=== PATIENT | female | born 1960 | race Caucasian/White ===

== ENCOUNTER 2025-07-23 14:32 | Outpatient (CLI) | payer MEDICARE, SELFPAY ==
--- OUTSIDE RECORDS SUMMARY | 2025-07-10 13:41 | XMS_ITS | Encounter Summary ---
Author Organization [facility] Address [address] [place] [address] Care Team Providers Care Tool Repairer Bench Name Role Phone Pranav Lagunas MD Primary Care Provider [phone] Reason for Referral * Diagnostic Imaging (Routine) - Closed Specialty Diagnoses / Procedures Referred By Contac t Referred To Contact Radiology Diagnoses Postmenopausal Procedures DEXA Bone Density Axial Pranav Lagunas MD [address] [place] [address] Phone: tel: fax: [address] [address] Phone: tel: Referral ID Status Reason Start Date Expiration Date Visits Re quested Visits Authorized [id number] Closed 02/21/2025 05/23/2026 1 1 Reason for Visit * Diagnostic Imaging (Routine) - Closed Specialty Diagnoses / Procedures Referred By Contac t Referred To Contact Radiology Diagnoses Postmenopausal Procedures DEXA Bone Density Axial Pranav Lagunas MD [address] [place] [address] Phone: tel: fax: [address] [address] Phone: tel: Referral ID Status Reason Start Date Expiration Date Visits Re quested Visits Authorized [id number] Closed 02/21/2025 05/23/2026 1 1 Encounter Details Date Type Department Care Team (Latest Contact Info) Description 07/10/2025 1:41 PM EDT - 07/10/2025 11:59 PM EDT Hospital Encounter [facility] [address] [place] [address] Pranav Lagunas MD [address] [place] [address] Postmenopausal Discharge Disposition: Home or Self Care Social History Tobacco Use Types Packs/Day Years Used Date Smoking Tobacco: Never Smokeless Tobacco: Never Alcohol Use Standard Drinks/Week Comments Yes 0 (1 standard drink = 0.6 oz pur e alcohol) rare PHQ-2 Answer Date Recorded Retired PHQ-9: Brief Depression Severity Measure Score 0 03/30/2023 PHQ-2 Answer Date Recorded Patient Health Questionnaire-2 Score 0 02/21/2025 Comments No Sex and Gender Information Value Date Recorded Sex Assigned at Female 02/14/2025 8:51 PM EDT Legal Sex Female 10:09 AM EDT Gender Identity Not on file Sexual Orientation Straight 02/14/2025 8: 51 PM EDT Occupation Industry Job Start Date Job End Date Not on file Not on file Not on file Not on file documented as of this encounter Medications at Time of Discharge azaTHIOprine (IMURAN) 50 MG tabletIndications: Ulcerative pancolitis without complication Take 2 tablets by mouth Daily. 60 tablet 5 03/12/2025 mesalamine (Lialda) 1.2 g EC tabletIndications: Ulcerative pancolitis without complication Take 2 tablets by mouth Daily. 60 tablet 5 09/13/2024 montelukast (Singulair) 10 MG tabletIndications: Chronic rhinitis Take 1 tablet by mouth Every Night. 90 tablet 3 02/21/2025 omeprazole (priLOSEC) 20 MG capsule TAKE 1 CAPSULE BY MOUTH EVERY DAY IN THE MORNING DIRECTED 08/18/2024 documented as of this encounter Plan of Treatment Upcoming Encounters Date Type Department Care Team (Late st Contact Info) Description 02/25/2026 10:00 AM EDT Office Visit [facility] [address] [address] Pranav Lagunas MD [address] [address] documented as of this encounter Procedures Procedure Name Priority Date/Time Associated Diagnosis Comments DEXA BONE DENSITY AXIAL Routine 07/10/2025 2:01 PM EDT Postmenopausal documented in this encounter Results * DEXA Bone Density Axial (07/10/2025 2:01 PM EDT) Anatomical Region Laterality Modality Wrist, Hip, L-spine N/A Other 07/10/2025 2:09 PM EDT Impressions 07/12/2025 10:18 PM EDT Osteopenia of the femoral necks bilaterally. The ten year fracture risk assessment is calculated at 11% for major systemic osteoporotic fracture and 1.7% for a hip fracture. Less than 3% risk in the [place] for hip fracture and less than 20% risk of any systemic osteoporotic fracture is considered less than the threshold for where pharmacological therapy is recommended by the National Osteoporosis Foundation. All the treatment decisions require clinical judgment and consideration of individual patient factors, including patient preferences, co-morbidities, previous drug use, risk factors not captured in the FRAX model (frailty, falls, vitamin D deficiency, increased bone turnover, interval significant decline in bone density) and possible under or over estimation of fracture risk by FRAX. Approaches to reduce osteoporosis related fracture risk include optimizing calcium and vitamin D status, appropriate weight bearing exercises and fall-prevention measurements. The National Osteoporosis Foundation recommends (http://www.nof.org/hcp/practice/cepqakku-ntx-ajekxhql-guidelines/clinicians-pablo de) that FDA-approved medical therapies be considered in postmenopausal women and men aged equal or greater than 50 years with : a) hip or vertebral (clinical or morphometric) fracture; b) T-score of -2.5 or less at the spine or hip; c) Ten-year fracture probability by FRAX of greater than 3% for hip fracture of greater than 20% for major osteoporotic fracture. Secondary causes of bone loss should be evaluated if clinically indicated since the etiology of low BMD cannot be determined by BMD measurement alone. FOLLOWUP: Consider repeating the study in 2-3 years to reassess the patient's status or sooner if there is some new clinical indication. INTERVAL CHANGE: There were no equivalent studies available for comparison. At this facility, the least significant change in the BMD at the left hip with 95% confidence is 0.714778 gm/cm2 at the hip and 0.486305 g/cm2 at the lumbar spine. Report dictated by: Elba Pompa PA-c I have personally reviewed this case and agree with the findings above: Electronically Signed: Gregory Wilson MD 07/12/2025 10:18 PM EDT Workstation ID: [id number] Narrative 07/12/2025 10:18 PM EDT DUAL-ENERGY X-RAY ABSORPTIOMETRY (DXA) INDICATION: Postmenopausal, screening for osteoporosis, inflammatory bowel disease COMPARISON: There are no equivalent studies available for comparison PROCEDURE: A DXA scan was performed using a Hologic densitometer. The lumbar spine L1-L4 was evaluated as well as bilateral total hip. The T-score compares the patient's bone mineral density with the peak bone mass of young normal patients. According to criteria established by the World Health Organization, patients with T-scores between 1.0 and 2.5 standard deviations BELOW the mean are osteopenic (low bone mass). Patients with T-scores EQUAL TO OR GREATER than 2.5 standard deviations below the mean are osteoporotic. The Z-score compares the patient bone mineral density with age and sex matched peers. According to the International Society for Clinical Densitometry's 2007 consensus conference: In women prior to menopause and men less than age 50, Z-scores, not T-scores are preferred. A Z-score of -2.0 or lower is defined as below the expected range for age and a Z-score above -2.0 is within the expected range for age. The WHO diagnostic criteria may be applied in women in the menopausal transition. Osteoporosis cannot be diagnosed in men under age 50 on the basis of BMD alone. TECHNICAL QUALITY: The study is of good technical quality. RESULTS: Lumbar Spine: The BMD measured in the L1-L4 region is 1.037 g/cm2. The average T-score is -0.1. The Z-score is 1.7. Total Hip: The BMD measured at the left total proximal femur is 0.883 g/cm2. The T-score is -0.5. The Z-score is 0.8. Femoral Neck: The BMD measured at the left femoral neck is 0.666 g/cm2. The T-score is -1.7. The Z-score is -0.1. Total Hip: The BMD measured at the right total proximal femur is 0.872 g/cm2. The T-score is -0.6. The Z-score is 0.7. Femoral neck: The BMD measured at the right femoral neck is 0.612 g/cm2. The T score is -2.1. The Z score is -0.6. Procedure Note Gregory Wilson MD - 07/12/2025 DUAL-ENERGY X-RAY ABSORPTIOMETRY (DXA) INDICATION: Postmenopausal, screening for osteoporosis, inflammatory boweldisease COMPARISON: There are no equivalent studies available for comparison PROCEDURE: A DXA scan was performed using a Hologic densitometer. The lumbar spine L1-L4 was evaluated as well as bilateral total hip. The T-score compares the patient's bone mineral density with the peak bonemass of young normal patients. According to criteria established by theor Health Organization, patients with T-scores between 1.0 and 2.5standard deviations BELOW the mean are osteopenic (low bone mass). Patients with T-scores EQUAL TO ORGREATER than 2.5 standard deviations below the mean are osteoporotic. The Z-score compares the patient bone mineral density with age and sexmatched peers. According to the International Society for ClinicalDensitometry's 2007 consensus conference: In women prior to menopause andmen less than age 50, Z-scores, not T-scores are preferred. A Z-score of -2.0 or lower is defined as belowthe expected range for age and a Z-score above -2.0 is within theexpected range for age. The WHO diagnostic criteria may be applied inwomen in the menopausal transition. Osteoporosis cannot be diagnosed in men under age 50 on the basis of BMDalone. TECHNICAL QUALITY: The study is of good technical quality. RESULTS: Lumbar Spine: The BMD measured in the L1-L4 region is 1.037 g/cm2. Theaverage T- score is -0.1. The Z-score is 1.7. Total Hip: The BMD measured at the left total proximal femur is 0.883g/cm2. The T-score is -0.5. The Z-score is 0.8. Femoral Neck: The BMD measured at the left femoral neck is 0.666 g/cm2.The T- score is -1.7. The Z-score is -0.1. Total Hip: The BMD measured at the right total proximal femur is 0.872g/cm2. The T-score is -0.6. The Z-score is 0.7. Femoral neck: The BMD measured at the right femoral neck is 0.612 g/cm2.The T score is -2.1. The Z score is -0.6. IMPRESSION: Osteopenia of the femoral necks bilaterally. The ten year fracture risk assessment is calculated at 11% for majorsystemic osteoporotic fracture and 1.7% for a hip fracture. Less than 3%risk in the [place] for hip fracture and less than 20% risk of anysystemic osteoporotic fracture is considered less than the threshold for where pharmacological therapy isrecommended by the National Osteoporosis Foundation. All the treatment decisions require clinical judgment and consideration ofindividual patient factors, including patient preferences, co-morbidities,previous drug use, risk factors not captured in the FRAX model (frailty,falls, vitamin D deficiency, increased bone turnover, interval significant decline in bone density) andpossible under or over estimation of fracture risk by FRAX. Approaches toreduce osteoporosis related fracture risk include optimizing calcium andvitamin D status, appropriate weight bearing exercises and fall-prevention measurements. The NationalOsteoporosis Foundation recommends(http://www.nof.org/hcp/practice/szluqqwj-tzw-qexjswyl-guidelines/clin ician s-guide) that FDA-approved medical therapies be considered in postmenopausal women and men aged equal or greater than 50 years with :a) hip or vertebral (clinical or morphometric) fracture; b) T-score of-2.5 or less at the spine or hip; c) Ten-year fracture probability by FRAXof greater than 3% for hip fracture of greater than 20% for major osteoporotic fracture. Secondary causes of bone loss should be evaluated if clinically indicatedsince the etiology of low BMD cannot be determined by BMD measurementalone. FOLLOWUP: Consider repeating the study in 2-3 years to reassess thepatient's status or sooner if there is some new clinical indication. INTERVAL CHANGE: There were no equivalent studies available forcomparison. At this facility, the least significant change in the BMD at the left hipwith 95% confidence is 0.856092 gm/cm2 at the hip and 0.164351 g/cm2 atthe lumbar spine. Report dictated by: Elba Pompa PA-c I have personally reviewed this case and agree with the findings above: Electronically Signed: Gregory Wilson MD 07/12/2025 10:18 PM EDT Workstation ID: [id number] Pranav Lagunas MD IMG DXA ORDERABLES Final Result documented in this encounter Visit Diagnoses Diagnosis Postmenopausal Asymptomatic postmenopausal status (age-related) (natural) documented in this encounter Care Teams Tool Repairer Bench Relationship Specialty Start Date End Date Pranav Lagunas MD [address] [place] [address] PCP - General Family Medicine 05/22/20 documented as of this encounter
--- OUTSIDE RECORDS SUMMARY | 2025-07-23 14:36 | XMS_ITS | Encounter Summary ---
Author Organization [facility] Address [address] [place] [id number] Care Team Providers Care Hide Paster Name Role Phone Pranav Lagunas MD Primary Care Provider Encounter Details Date Type Department Care Team (Latest Contact Info) Description 07/10/2025 Travel Social History Tobacco Use Types Packs/Day Years [...] on file documented as of this encounter Plan of Treatment Upcoming Encounters Date Type Department Care Team (Late st Contact Info) Description 02/25/2026 10:00 AM EDT Office Visit [facility] [address] [place] [address] Pranav Lagnuas MD [address] [place] [address] documented as of this encounter Visit Diagnoses Not on filedocumented in this encounter Care Teams Hide Paster Relationship Specialty Start Date End Date Pranav Lagunas MD [address] [place] [address] PCP - General Family Medicine 05/22/20 documented as of this encounter
--- OUTSIDE RECORDS SUMMARY | 2025-07-23 14:36 | XMS_ITS | Clinical Summary ---
Author Organization [facility] Address [address] [place] [address] Care Team Providers Care Hospital Unit Coordinator Name Role Phone Pranav Lagunas MD Primary Care Provider [phone] Allergies No known active allergies Medications omeprazole (priLOSEC) 20 MG capsule TAKE 1 CAPSULE BY MOUTH EVERY DAY IN THE MORNING DIRECTED 4 Active mesalamine (Lialda) 1.2 g EC tabletIndications :Ulcerative pancolitis without complication Take 2 tablets by mouth Daily. 60 tablet 5 4 Active montelukast (Singulair) 10 MG tabletIndications :Chronic rhinitis Take 1 tablet by mouth Every Night. 90 tablet 3 5 Active azaTHIOprine (IMURAN) 50 MG tabletIndications :Ulcerative pancolitis without complication Take 2 tablets by mouth Daily. 60 tablet 5 5 Active Active Problems Problem Noted Date Diagnosed Date Osteopenia of multiple sites 07/13/2025 Overview (07/13/2025): DEXA 07/23 Ulcerative pancolitis without complication 05/22 Overview (05/22/2020): Sees dr. Harris Encounters Date Type Department Care Team Description 07/13/2025 Results Follow-Up [facility] [address] [place] [address] Pranav Lagunas MD 07/10/2025 1:41 PM EDT - 07/10/2025 11:59 PM EDT Hospital Encounter [facility] [address] [place] [address] Pranav Lagunas MD Postmenopausal Discharge Disposition: Home or Self Care 07/10/2025 Travel from Last 3 Months Immunizations Immunization Administration Dates Next Due ABRYSVO (RSV, 60+ or pregnan t women 32-36 wks) 11/11/2023 COVID-19 (PFIZER) Purple Cap Monovalent 09/10/20 21,02/22/2021,01/30/2021 Covid-19 (Pfizer) [place] Cap Monovalent 07/16/2022 Flu Vaccine Intradermal Quad 18-64YR 09/06/2019, 09/15/2018 Flublok 18+yrs 10/11/2023 Fluzone >6mos 08/22/2024,08/29/2014 Fluzone (or Fluarix & Flulav al for VFC) >6mos 09/01/2023,10/05/2022 Influenza Injectable Mdck Pf Quad 09/06/2019, Pneumococcal Conjugate 20-Valent (PCV20) 025 Shingrix 12/06/2020,08/29/2020 Td (TDVAX) 05/22/2016 Tdap 07/01/2020 flucelvax quad pfs =>4 YRS 08/29/2020 Family History Medical History Relation Name Comments COPD Father Dementia Father Heart failure Mother 1969 Breast cancer Neg Hx Colon cancer Neg Hx Esophageal cancer Neg Hx Ovarian cancer Neg Hx Relation Name Status Comments Father Mother 1969 (Age 41) respirator y illness from CHF Social History Tobacco Use Types Packs/Day Years Used Date Smoking Tobacco: Never Smokeless Tobacco: Never Tobacco Cessation:Counseling Given: Not Answered Alcohol Use Standard Drinks/Week Comments Yes 0 [...] file Not on file Not on file Last Filed Vital Signs Vital Sign Reading Time Taken Comments Blood Pressure 120/72 02/21/2025 9:56 AM EDT Pulse 64 02/21/2025 9:56 AM EDT Temperature 36.3 C (97.3 F) 02/21/2025 9:56 AM EDT Respiratory Rate 18 02/21/2025 9:56 AM EDT Oxygen Saturation 97% 02/21/2025 9:56 AM EDT Inhaled Oxygen Concentration - - Weight 60.8 kg (134 lb) 02/21/2025 9:56 AM EDT Height 157.5 cm (5' 2 ) 02/21/2025 9:56 AM EDT Body Mass Index 24.51 02/21/2025 9:56 AM EDT Plan of Treatment Upcoming Encounters Date Type Department Care Team (Late st Contact Info) Description 02/25/2026 10:00 AM EDT Office Visit [facility] [address] [place] [address] Pranav Lagunas MD [address] [place] [address] Health Maintenance Due Date Last Done Comments COLOGUARD 2004 COLON CANCER SCREENING 5 YEA R SIGMOIDOSCOPY 2004 [address] COLONOGRAPHY 2004 FECAL OCCULT BLOOD TEST 2004 FIT Testing (1 year) 2004 COVID-19 Vaccine (7 - Pfizer risk season) 2025 08/22/2024, 09/01/2023, 07/16/2022, Additional history exists INFLUENZA VACCINE 08/29/2025 08/22/2024, , 09/01/2023, Additional history exists ANNUAL WELLNESS VISIT 02/21/2026 02/21/2025 MAMMOGRAM 08/21/2026 08/21/2024, 0811/2022, 02/11/2022, Additional history exists DXA SCAN 07/10/2027 07/10/2025 TDAP/TD VACCINES (3 - Td or Tdap) 07/01/2030 020, 05/22/2016 COLONOSCOPY 10/04/2034 10/04/2024, 08/29, 09/05/2020, Additional history exists COLORECTAL CANCER SCREENING 10/04/2034 ZOSTER VACCINE Completed 12/06/2020, 08/29/2020 HEPATITIS C SCREENING Completed 03/11/2022 Pneumococcal Vaccine 50+ Completed 02/21/2025 Procedures Procedure Name Priority Date/Time Associated Diagnosis Comments DEXA BONE DENSITY AXIAL Routine 07/10/2025 2:01 PM EDT Postmenopausal SCANNED - COLONOSCOPY 10/04/2024 MAMMO SCREENING DIGITAL TOMOSYNTHESIS BILATERAL W CAD Routine 08/21/2024 3:17 PM EDT Visit for screening mammogram HEPATITIS C ANTIBODY Routine 03/11/2022 10:11 AM EDT Encounter for hepatitis C screening test for low risk patient SCANNED - INFLUENZA 08/29/2020 from Last 3 Months or Most Recently Relevant to Health Maintenance Results * DEXA Bone Density Axial (07/10/2025 [...] fall-prevention measurements. The National Osteoporosis Foundation recommends (http://www.nof.org/hcp/practice/tdzduezw-tar-miimrbpr-guidelines/clinicians-pablo de) that FDA-approved medical therapies be considered [...] the left hip with 95% confidence is 0.267131 gm/cm2 at the hip and 0.172264 g/cm2 at the lumbar spine. Report dictated by: Elba Pompa PA-c I have personally reviewed this case and agree with the findings above: Electronically Signed: Gregory Wilson MD 07/12/2025 10:18 PM EDT Workstation ID: [id number] Narrative 07/12/2025 10:18 PM EDT DUAL-ENERGY X-RAY [...] exercises and fall-prevention measurements. The NationalOsteoporosis Foundation recommends(http://www.nof.org/hcp/practice/frckfogi-jta-gehrozwm-guidelines/clin ician s-guide) that FDA-approved medical therapies be [...] at the left hipwith 95% confidence is 0.089980 gm/cm2 at the hip and 0.523610 g/cm2 atthe lumbar spine. Report dictated by: Elba Pompa PA-c I have personally reviewed this case and agree with the findings above: Electronically Signed: Gregory Wilson MD 07/12/2025 10:18 PM EDT Workstation ID: [id number] Pranav Lagunas MD IMG DXA ORDERABLES Final Result * Colonoscopy, Scan (10/04/2024) Chong Shrestha MD CHART REVIEW TABS Final Result * Mammo Screening Digital Tomosynthesis Bilateral With CAD (08/21/2024 3:17 PM EDT) Anatomical Region Laterality Modality Breast N/A Mammography 08/26/2024 4:09 PM EDT Impressions 08/26/2024 4:09 PM EDT No findings suspicious for malignancy. ACR BI-RADS CATEGORY: 1, NEGATIVE RECOMMENDATION: Yearly mammogram, yearly clinical breast exam, and encourage self breast awareness. CAD was used. The standard false negative rate of mammography is between 10% and 25%. Complex patterns or increased breast density will markedly elevate the false negative rate of mammography. A letter, in lay terminology, with the results of this exam will be mailed to the patient. At our facility, a triangular marker is positioned over a palpable area of concern indicated by the patient. A kival[place] marker is placed over a visible skin lesion. A linear marker indicates a scar. If there is a palpable area of concern, biopsy should be considered regardless of imaging findings. This report was finalized on 08/26/2024 4:[address] Marissa Gonzáles MD. Narrative 08/26/2024 4:09 PM EDT DIGITAL SCREENING MAMMOGRAM WITH TOMOSYNTHESIS HISTORY: Routine screening. IMAGE COMPARISON: 07/09/2023, 02/11/2022, 10/04/2020. TECHNIQUE: Low dose full field digital breast tomosynthesis imaging was performed with 2D and 3D acquisitions consisting of bilateral CC and MLO views. FINDINGS: There are scattered areas of fibroglandular density. The fibroglandular pattern appears stable. There is no mass, worrisome microcalcifications, or architectural distortion to suggest development of malignancy. Pranav Lagunas MD IMG MAMMOGRAPHY ORDERABLES [place] [facility] Result * Hepatitis C Antibody (03/11/2022 10:11 AM EDT) Hep C Virus Ab <0.1 0.0 - 0.9 s/co ratio [facility] Comment: Negative: < 0.8 Indeterminate: 0.8 - 0.9 Positive: > 0.9 The CDC recommends that a positive HCV antibody result be followed up with a HCV Nucleic Acid Amplification test (565141). Blood 03/11/2022 10:1 1 AM EDT 03/11/2022 Narrative [id number] [place] (AMBULATORY) - 03/12/2022 7:09 AM EDT Performed at: [address] [id number] Internal Medicine Hospitalist: Eduardo Mendoza PhD, Phone: [phone] Patient Fasting: Y Pranav Lagunas MD LAB BLOOD ORDERABLES Final Resu lt [facility] [id number] [place] (AMBULATORY) [address] [place] [address], [place] [phone] [facility] [address] [place] [address], * SCANNED - INFLUENZA (08/29/2020) us [facility] CHART REVIEW TABS Final Re sult from Last 3 Months or Most Recently Relevant to Health Maintenance Insurance [facility] Medicare [employer] PPO Advance Directives Documents on File Type Date Recorded Patient Customer Acquisition Manager Expl anation LIVING WILL - SCAN 02/21/2025 11:00 AM [employer]YSTAL ING WILL DIRECTIVE/HEALTH CARE SURROGATE, [employer], 07/18/2024 Care Teams Hospital Unit Coordinator Relationship Specialty Start Date End Date Pranav Laugnas MD [facility] [place] [address] PCP - General Family Medicine 05/22/20
--- OUTSIDE RECORDS SUMMARY | 2025-07-23 14:36 | XMS_ITS | Encounter Summary ---
[facility] Address [address] [place] [id number] Care Team Providers Care Paperhanger Name Role Phone Pranav Lagunas MD Primary Care Provider [phone] Encounter Details Date Type Department Care Team (Late st Contact Info) Description 07/13/2025 Results Follow-Up [facility] [address] [facility] [place] [address] Pranav Lagunas MD [address] [place], [place] [id number] Social History Tobacco Use Types Packs/Day Years [...] Description 02/25/2026 10:00 AM EDT Office Visit [facility] [address] [facility] [address] Pranav Lagunas MD [address] [facility] [place] [address] documented as of this encounter Visit Diagnoses Not on filedocumented in this encounter Care Teams Paperhanger Relationship Specialty Start Date End Date Pranav Lagunas MD [address] [place] [address] PCP - General Family Medicine 05/22/20 documented as of this encounter
--- OUTSIDE RECORDS SUMMARY | 2025-07-23 14:36 | XMS_ITS | Clinical Summary ---
Author Organization Healthcare Address [address] [place] [address] Care Team Providers Care Stummel Selector Name Role Phone Sydni Durham MD Primary Care Provider [phone]- [phone] Social History Tobacco Use Types Packs/Day Years Used Date Smoking Tobacco: Never Comments Unknown Sex and Gender Information Value Date Recorded Sex Assigned at Not on file Legal Sex Female 8:42 PM EDT Gender Identity Not on file Sexual Orientation Not on file Last Filed Vital Signs Vital Sign Reading Time Taken Comments Blood Pressure - - Pulse - - Temperature - - Respiratory Rate - - Oxygen Saturation - - Inhaled Oxygen Concentration - - Weight 69.8 kg (153 lb 15.9 oz) 12/16/2012 3:32 PM EST Height 152.4 cm (5') 12/16/2012 3:32 PM EST Body Mass Index 30.07 12/16/2012 3:32 PM EST Plan of Treatment Not on file Care Teams [employer] Selector Relationship Specialty Start Date End Date Sydni Durham MD [address] [facility] [address] [place] [address] PCP - General 04/11/21
[2025-07-23 15:05] LABS: Hematocrit 39.7 % (37.0-47.0); Hemoglobin 14.0 g/dL (12.2-16.2); Immature Granulocytes % 0.4 %; Mean Corpuscular HGB Conc 35.3 g/dL (31.8-35.4); Mean Corpuscular Hemoglobin 33.1 pg (27.0-31.2); Mean Corpuscular Volume 93.9 fl (81-99); Nucleated Red Blood Cells % 0 %; Platelet Count 276 K/mm3 (142-424); Red Blood Count 4.23 M/mm3 (4.20-5.40); Red Cell Distribution Width-SD 44.2 fL; White Blood Count 5.2 K/mm3 (4.8-10.8)
[2025-07-23 15:53] LABS: Alanine Aminotransferase 16 U/L (12-78); Albumin Level 4.2 g/dl (3.5-5.0); Albumin/Globulin Ratio 1.8 (1.1-1.8); Alkaline Phosphatase 70 U/L (38-126); Anion Gap 12.0 mEq/L (5-15); Aspartate Amino Transferase 27 U/L (14-36); Bilirubin,Total 0.5 mg/dl (0.2-1.3); Blood Urea Nitrogen 19 mg/dl (7-17); Calcium 9.5 mg/dl (8.4-10.2); Carbon Dioxide 27 mmol/L (22.0-30.0); Chloride 103 mmol/L (98-107); Creatinine,Serum 0.70 mg/dl (0.52-1.04); Estimated Glomerular Filt Rate 84 ml/min (>60); GFR (African American) 102 ML/MIN (>60); Globulin 2.3 g/dL (1.3-3.2); Glucose 87 mg/dl (74-100); Potassium 4.0 mmoL/L (3.5-5.1); Sodium 138 mmol/L (136-145); Total Protein,Serum 6.5 g/dl (6.3-8.2)
[2025-07-23 15:58] LABS: C-Reactive Protein 1.0 mg/L (0-4)
[2025-07-23 16:09] LABS: 25-OH Vitamin D, Total 61.5 ng/mL (30-100)
[2025-07-23 16:30] LABS: Ferritin 40.2 ng/ml (11.1-264)
[2025-07-23 16:45] LABS: Vitamin B12 222 pg/mL (239-931)
[2025-07-23 16:54] LABS: Iron 98 ug/dL (37-170)
[2025-07-23 17:33] LABS: Total Iron Binding Capacity 281 ug/dL (265-497)
== END 2025-07-23 23:59 | disposition home or self-care (01) ==
LOC: LAB 14:33
PROVIDERS: PCP Family Medicine; Visit Provider Nurse Practitioner Family
DX: K51.90 Ulcerative colitis, unspecified, without complications (principal); K75.81 Nonalcoholic steatohepatitis (NASH)
CPT/HCPCS: 36415; 80053; 82306; 82607; 82728; 83540; 83550; 85025; 85651; 86140